=== PATIENT | male | born 1985 | race Two or more races ===

== ENCOUNTER 2017-06-11 19:29 | Emergency (ER) | payer OTHER ==
--- NOTE | 2017-06-11 20:26 | UC ---
Complaint Male HPI - HPI Summary HPI Summary: urinary frequency and burning since today with blood in urine. Denies fever or flank pain but had been feeling unwell for 3 days - History of Current Complaint Chief Complaint: UCGU Stated Complaint: BLOOD IN URINE Time Seen by Provider: 06/11/17 19:56 - Allergies/Home Medications Allergies/Adverse Reactions: Allergies Allergy/AdvReac Type Severity Reaction Status Date / Time No Known Allergies Allergy Verified 06/11/17 19:40 PMH/Surg Hx/FS Hx/Imm Hx Previously Healthy: Yes - Surgical History Surgical History: None - Family History Known Family History: Positive: Hypertension - Social History Alcohol Use: None Substance Use Type: None Smoking Status (MU): Never Smoked Tobacco - Immunization History Most Recent Influenza Vaccination: NEVER Most Recent Tetanus Shot: UTD Review of Systems Constitutional: Negative Genitourinary: Dysuria, Hematuria, Frequency All Other Systems Reviewed And Are Negative: Yes Physical Exam Triage Information Reviewed: Yes Appearance: Well-Appearing Vital Signs: Initial Vital Signs Temp 98.7 F 06/11/17 19:35 Pulse 90 06/11/17 19:35 Resp 12 06/11/17 19:35 BP 149/79 06/11/17 19:35 Pulse Ox 98 06/11/17 19:35 Vital Signs Reviewed: Yes Neck exam: Normal Respiratory Exam: Normal Cardiovascular Exam: Normal Abdominal Exam: Normal Bowel Sounds: Positive: Present Complaint Male Course/Dx - Course Course Of Treatment: take antibiotics as prescribed. PO fluids, f/u PCP - Differential Dx/Diagnosis Provider Diagnoses: Acute cystitis Discharge - Discharge Plan Condition: Stable Disposition: HOME Patient Education Materials: Urinary Tract Infection in Men (DC), Urinary Tract Infection in Men (ED) Referrals: No Primary Care Phys,NOPCP [Primary Care Provider] -
[2017-06-11 20:43] VITALS: BP 128/73
== END 2017-06-11 20:48 | disposition home or self-care (01) ==
LOC: UCEAST 19:29
DX: N30.01 Acute cystitis with hematuria (principal); B96.4 Proteus (mirabilis) (morganii) as the cause of diseases classified elsewhere
CPT/HCPCS: 81003; 87077; 87086; 87186; 99212; G0463